=== PATIENT | male | born 1965 | race Caucasian/White ===

== ENCOUNTER 2017-01-16 17:36 | Emergency (ER) | payer SELFPAY ==
[~2017-01-16] VITALS: Ht 167.6 cm; Wt 75.0 kg
[~2017-01-16 17:36] MED LIST: CETI10TA6 PO; FLUT16SP15 BOTHNSTRLS; GLIP10TA10 PO; HYDR-3511 PO; METF850T2 PO; METO10TA3 PO; OMEP20CA10 PO
[2017-01-16] MEDS ORDERED: KETOROLAC 30MG/ML VIAL IV STA (22:34)
[2017-01-16] MEDS ORDERED: VISCOUS LIDOCAINE 2% 15 ML UDC PO STA (22:34)
[2017-01-16] MEDS ORDERED: MAGNESIUM/ALUMINUM HYDROXIDE/SIMETHICONE 30ML UDC PO STA (22:34)
[2017-01-16] MEDS ORDERED: ONDANSETRON HCL 4MG/2ML VIAL IV STA (22:34)
[2017-01-16] MEDS ORDERED: SODIUM CHLORIDE 0.9% 1,000 ML IV ONE (22:34)
[2017-01-16] MEDS ORDERED: DICYCLOMINE 10 MG/5 ML ORAL SYR PO STA (22:34)
[2017-01-16 23:10] LABS: HEMATOCRIT. 44.3 % (42.0-52.0); HEMOGLOBIN. 15.5 g/dL (14.0-18.0); MEAN CORPUSCULAR HEMOGLOBIN 30.8 pg (28.0-32.0); MEAN CORPUSCULAR VOLUME 87.9 fL (80.0-94.0); MEAN PLATELET VOLUME 8.1 fl (7.4-10.4); PLATELET 216 x1000/uL (130-400); RED BLOOD CELL COUNT 5.04 mill/uL (4.7-6.1); RED CELL DISTRIBUTION WIDTH 12.9 % (11.6-14.6)
[2017-01-16 23:16] LABS: CHLORIDE 99 mEq/L (98-107)
[2017-01-16 23:18] LABS: PROTHROMBIN TIME 10.7 sec
[2017-01-16 23:19] LABS: CARBON DIOXIDE 33 mEq/L (21-32)
[2017-01-17 00:45] VITALS: BP 138/84
[2017-01-17 02:35] LABS: PLATELET ESTIMATE NORMAL
== END 2017-01-17 00:47 | disposition home or self-care (01) ==
LOC: ER 17:36
DX: R10.33 Periumbilical pain (principal); E11.9 Type 2 diabetes mellitus without complications; Z79.899 Other long term (current) drug therapy
CPT/HCPCS: 36415; 80053; 83690; 85025; 85610; 96361; 96374; 96375; 99284; J1885; J2405; J7030; Z7610

== ENCOUNTER 2018-09-22 20:30 | Inpatient (IN) | payer MEDICAID ==
[~2018-09-22] VITALS: Ht 167.6 cm; Wt 68.5 kg
[~2018-09-22 20:30] MED LIST changes: +METF-415 PO; -METF850T2 PO
[2018-09-22] MEDS ORDERED: FAMOTIDINE 20MG/2ML VIAL IV STA (23:02)
[2018-09-22] MEDS ORDERED: MORPHINE SULFATE 4 MG/ML CPJ (NOT FOR IM USE) IV STA (23:02)
[2018-09-22] MEDS ORDERED: SODIUM CHLORIDE 0.9% 1,000 ML IV ONE (23:02)
[2018-09-22] MEDS ORDERED: ONDANSETRON HCL 4MG/2ML INJ IV STA (23:02)
[2018-09-22 23:56] LABS: BASOPHILS % 0.1 % (0.0-2.0); EOSINOPHILS % 0.1 % (0.0-5.0); HEMATOCRIT. 45.4 % (42.0-52.0); HEMOGLOBIN. 15.2 g/dL (14.0-18.0); MEAN CORPUSCULAR HEMOGLOBIN 30.4 pg (28.0-32.0); MEAN CORPUSCULAR VOLUME 90.8 fL (80.0-94.0); MEAN PLATELET VOLUME 8.5 fl (7.4-10.4); MONOCYTES % 2.1 % (2.0-8.0); NEUTROPHILS % 86.7 % (40.0-76.0); PLATELET 174 x1000/uL (130-400); RED CELL DISTRIBUTION WIDTH 13.5 % (11.6-14.6)
[2018-09-22 23:58] LABS: CHLORIDE 105 mEq/L (98-107)
[2018-09-23] MEDS ORDERED: MORPHINE SULFATE 4 MG/ML CPJ (NOT FOR IM USE) IV ONE (01:30)
[2018-09-23] MEDS ORDERED: MAGNESIUM/ALUMINUM HYDROXIDE/SIMETHICONE 30ML UDC PO ONE (01:30)
[2018-09-23] MEDS ORDERED: ONDANSETRON HCL 4MG/2ML INJ IV ONE (01:30)
[2018-09-23] MEDS ORDERED: IOHEXOL-300 100 ML BOTTLE ONE (02:24)
[2018-09-23 03:26] VITALS: BP 145/79
[2018-09-23 04:00] VITALS: BP 145/79
[2018-09-23] MEDS ORDERED: DEXTROSE 50% WATER 50ML SYRINGE IV PRN (07:00)
[2018-09-23] MEDS: BLOOD SUGAR DIAGNOSTIC STRIP TEST SCH ×4 (07:20→21:11)
[2018-09-23] MEDS: INSULIN LISPRO 100 UNITS/ML SUBCUT SCH ×4 (07:50→21:55)
[2018-09-23 08:00] VITALS: BP 150/89
[2018-09-23] MEDS: SODIUM CHLORIDE 0.9% 1,000 ML IV SCH ×2 (08:00→22:18)
[2018-09-23] MEDS: HYDROCODONE/ACETAMINOPHEN 5/325MG TABLET PO PRN ×3 (08:23→21:46)
[2018-09-23] MEDS: ONDANSETRON HCL 4MG/2ML INJ IV PRN ×2 (08:39→17:10)
[2018-09-23 09:06] LABS: HEMATOCRIT 46.3 % (42.0-52.0); HEMOGLOBIN 15.6 g/dL (14.0-18.0); MEAN CORPUSCULAR HEMOGLOBIN 30.8 pg (28.0-32.0); MEAN CORPUSCULAR VOLUME 91.5 fL (80.0-94.0); PLATELET 165 x1000/uL (130-400); RED BLOOD CELL COUNT 5.06 mill/uL (4.7-6.1); RED CELL DISTRIBUTION WIDTH 13.8 % (11.6-14.6)
[2018-09-23 09:16] LABS: CHLORIDE 102 mEq/L (98-107)
[2018-09-23 09:23] LABS: LDL CHOLESTEROL 99 mg/dL (5-100)
[2018-09-23 09:24] LABS: HDL CHOLESTEROL 50 mg/dL (40-59)
[2018-09-23 12:00] VITALS: BP 135/88
[2018-09-23] MEDS ORDERED: MORPHINE SULFATE 4 MG/ML CPJ (NOT FOR IM USE) IV PRN (12:15)
[2018-09-23 16:00] VITALS: BP 113/70
[2018-09-23 20:00] VITALS: BP 130/71
[2018-09-23] MEDS: ENOXAPARIN 40MG/0.4ML SYR SUBCUT SCH (21:46)
[2018-09-24] VITALS: BP 115/70
[2018-09-24] MEDS: HYDROCODONE/ACETAMINOPHEN 5/325MG TABLET PO PRN ×3 (03:55→16:39)
[2018-09-24] MEDS: ONDANSETRON HCL 4MG/2ML INJ IV PRN ×3 (03:55→16:38)
[2018-09-24 04:00] VITALS: BP 105/65
[2018-09-24] MEDS: BLOOD SUGAR DIAGNOSTIC STRIP TEST SCH ×4 (07:29→21:00)
[2018-09-24 07:37] LABS: BASOPHILS % 0.3 % (0.0-2.0); EOSINOPHILS % 0.2 % (0.0-5.0); LYMPHOCYTES % 24.7 % (20.0-50.0); MEAN CORPUSCULAR HEMOGLOBIN 30.9 pg (28.0-32.0); MEAN CORPUSCULAR VOLUME 90.6 fL (80.0-94.0); MONOCYTES % 8.7 % (2.0-8.0); NEUTROPHILS % 66.1 % (40.0-76.0); PLATELET 159 x1000/uL (130-400); RED BLOOD CELL COUNT 4.53 mill/uL (4.7-6.1); RED CELL DISTRIBUTION WIDTH 13.6 % (11.6-14.6)
[2018-09-24 07:39] LABS: CHLORIDE 105 mEq/L (98-107)
[2018-09-24 08:00] VITALS: BP 123/67
[2018-09-24 12:00] VITALS: BP 157/91
[2018-09-24] MEDS: METOCLOPRAMIDE HCL 10MG/2ML VIAL IV SCH ×2 (12:25→17:00)
[2018-09-24] MEDS: PANTOPRAZOLE SODIUM 40 MG/VIAL IV SCH (12:26)
[2018-09-24] MEDS: INSULIN LISPRO 100 UNITS/ML SUBCUT SCH ×2 (12:37→16:46)
[2018-09-24 16:00] VITALS: BP 156/85
[2018-09-24 20:00] VITALS: BP_SYST 143; BP_SYST 166; BP_DIAS 70; BP_DIAS 82
[2018-09-24] MEDS: ENOXAPARIN 40MG/0.4ML SYR SUBCUT SCH (20:24)
[2018-09-24] MEDS: ZOLPIDEM TARTRATE 5MG TABLET PO PRN (22:48)
[2018-09-25] VITALS: BP 100/55
[2018-09-25] MEDS: METOCLOPRAMIDE HCL 10MG/2ML VIAL IV SCH ×4 (00:09→17:57)
[2018-09-25 04:00] VITALS: BP 114/70
[2018-09-25] MEDS: BLOOD SUGAR DIAGNOSTIC STRIP TEST SCH ×4 (06:31→21:00)
[2018-09-25 06:36] LABS: BASOPHILS % 0.1 % (0.0-2.0); HEMATOCRIT. 41.2 % (42.0-52.0); HEMOGLOBIN. 14.1 g/dL (14.0-18.0); LYMPHOCYTES % 20.3 % (20.0-50.0); MEAN CORPUSCULAR HEMOGLOBIN 30.7 pg (28.0-32.0); MEAN CORPUSCULAR VOLUME 89.4 fL (80.0-94.0); MEAN PLATELET VOLUME 8.8 fl (7.4-10.4); MONOCYTES % 7.5 % (2.0-8.0); NEUTROPHILS % 72.1 % (40.0-76.0); PLATELET 160 x1000/uL (130-400); RED CELL DISTRIBUTION WIDTH 13.6 % (11.6-14.6)
[2018-09-25 06:54] LABS: CHLORIDE 100 mEq/L (98-107)
[2018-09-25] MEDS: INSULIN LISPRO 100 UNITS/ML SUBCUT SCH ×4 (07:50→21:00)
[2018-09-25 08:00] VITALS: BP 110/66
[2018-09-25] MEDS: HYDROCODONE/ACETAMINOPHEN 5/325MG TABLET PO PRN ×2 (08:47→15:18)
[2018-09-25] MEDS: PANTOPRAZOLE SODIUM 40 MG/VIAL IV SCH (08:47)
[2018-09-25 12:00] VITALS: BP 152/82
[2018-09-25] MEDS ORDERED: POTASSIUM CHLORIDE 20MEQ TABLET SR PO NR (15:30)
[2018-09-25] MEDS: ONDANSETRON HCL 4MG/2ML INJ IV PRN (15:45)
[2018-09-25 16:00] VITALS: BP 159/84
[2018-09-25] MEDS ORDERED: HYDROMORPHONE HCL/PF 2MG/ML CPJ IV PRN (16:00)
[2018-09-25 20:00] VITALS: BP 154/83
[2018-09-25] MEDS: ENOXAPARIN 40MG/0.4ML SYR SUBCUT SCH (22:13)
[2018-09-26] VITALS: BP 105/68
[2018-09-26] MEDS: METOCLOPRAMIDE HCL 10MG/2ML VIAL IV SCH ×2 (01:42→11:27)
[2018-09-26] MEDS: ZOLPIDEM TARTRATE 5MG TABLET PO PRN (01:43)
[2018-09-26 04:00] VITALS: BP 101/61
[2018-09-26] MEDS: INSULIN LISPRO 100 UNITS/ML SUBCUT SCH ×2 (07:01→12:50)
[2018-09-26] MEDS: BLOOD SUGAR DIAGNOSTIC STRIP TEST SCH ×2 (07:01→11:40)
[2018-09-26] MEDS: SODIUM CHLORIDE 0.9% 1,000 ML IV SCH (07:30)
[2018-09-26 07:50] LABS: CHLORIDE 102 mEq/L (98-107)
[2018-09-26 08:00] VITALS: BP 120/67
[2018-09-26] MEDS: PANTOPRAZOLE SODIUM 40 MG/VIAL IV SCH (08:22)
[2018-09-26] MEDS ORDERED: POTASSIUM CHLORIDE 20MEQ TABLET SR PO NR (10:45)
[2018-09-26 12:00] VITALS: BP 122/75
[2018-09-26 13:15] VITALS: BP 150/84
== END 2018-09-26 16:15 | disposition home or self-care (01) | DRG 48 ==
LOC: ER 20:30 → EDBEDREQ 09-23 01:55 → EDBEDREQTM 09-23 01:55 → ENRESERV 09-23 02:00 → 6EST 09-23 02:57
PROVIDERS: ADMIT Internal Medicine; ATTEND Internal Medicine
DX: E11.43 Type 2 diabetes mellitus with diabetic autonomic (poly)neuropathy (principal); K31.84 Gastroparesis; Z79.84 Long term (current) use of oral hypoglycemic drugs
CPT/HCPCS: 36415; 74177; 80048; 80061; 82962; 83036; 83735; 84484; 85027; 96361; 96374; 96375; 99285; C9113; J1650; J1815; J2270; J2405; J2765; J3490; J7030; Q9967

== ENCOUNTER 2018-11-11 13:29 | Emergency (ER) | payer MEDICAID ==
[~2018-11-11] VITALS: Ht 167.6 cm; Wt 70.0 kg
[2018-11-11] MEDS ORDERED: SODIUM CHLORIDE 0.9% 1,000 ML IV ONE (16:23)
[2018-11-11] MEDS ORDERED: KETOROLAC 30MG/ML VIAL IV STA (16:23)
[2018-11-11] MEDS ORDERED: MAGNESIUM/ALUMINUM HYDROXIDE/SIMETHICONE 30ML UDC PO STA (16:23)
[2018-11-11] MEDS ORDERED: ONDANSETRON HCL 4MG/2ML INJ IV STA (16:23)
[2018-11-11 16:58] LABS: BASOPHILS % 0.2 % (0.0-2.0); HEMATOCRIT. 45.3 % (42.0-52.0); HEMOGLOBIN. 15.7 g/dL (14.0-18.0); LYMPHOCYTES % 10.7 % (20.0-50.0); MEAN CORPUSCULAR HEMOGLOBIN 31.3 pg (28.0-32.0); MEAN CORPUSCULAR VOLUME 90.5 fL (80.0-94.0); MEAN PLATELET VOLUME 8.7 fl (7.4-10.4); MONOCYTES % 2.2 % (2.0-8.0); NEUTROPHILS % 86.9 % (40.0-76.0); PLATELET 190 x1000/uL (130-400); RED CELL DISTRIBUTION WIDTH 13.7 % (11.6-14.6)
[2018-11-11 17:01] LABS: CHLORIDE 105 mEq/L (98-107)
[2018-11-11 17:05] LABS: ETHANOL BLOOD < 10 mg/dL
[2018-11-11] MEDS ORDERED: MORPHINE SULFATE 4 MG/ML CPJ (NOT FOR IM USE) IV ONE (20:15)
[2018-11-11] MEDS ORDERED: METOCLOPRAMIDE HCL 10MG/2ML VIAL IV ONE (20:15)
[2018-11-11 20:51] LABS: CLARITY URINE CLEAR (CLEAR); COLOR URINE YELLOW (YELLOW); KETONES URINE 1+ (NEGATIVE); LEUKOCYTE ESTERASE URINE NEGATIVE (NEGATIVE); NITRITE URINE NEGATIVE (NEGATIVE); OCCULT BLOOD URINE NEGATIVE (NEGATIVE); PROTEIN URINE NEGATIVE (NEGATIVE); SPECIFIC GRAVITY URINE 1.012 (1.005-1.030); UROBILINOGEN URINE 0.2 E.U./dL (0.2-1.0)
[2018-11-11 21:46] VITALS: BP 150/79
== END 2018-11-11 21:58 | disposition home or self-care (01) ==
LOC: ER 13:29
DX: R10.33 Periumbilical pain (principal); E11.9 Type 2 diabetes mellitus without complications; Z79.84 Long term (current) use of oral hypoglycemic drugs; Z98.890 Other specified postprocedural states
CPT/HCPCS: 36415; 74176; 80053; 80320; 81003; 82962; 83690; 85025; 93005; 96361; 96374; 96375; 99284; J1885; J2270; J2405; J2765; J7030; G0480

== ENCOUNTER 2019-03-07 17:17 | Inpatient (IN) | payer MEDICAID, OTHER ==
[~2019-03-07] VITALS: Ht 167.6 cm; Wt 71.7 kg
[~2019-03-07 17:17] MED LIST changes: -HYDR-3511 PO; +HYDR-3512 PO; -OMEP20CA10 PO; +OMEP20CA5 PO
[2019-03-07] MEDS ORDERED: SODIUM CHLORIDE 0.9% 1,000 ML IV ONE (20:19)
[2019-03-07] MEDS ORDERED: ONDANSETRON HCL 4MG/2ML INJ IV STA (20:19)
[2019-03-07] MEDS ORDERED: MORPHINE SULFATE 4 MG/ML CPJ (NOT FOR IM USE) IV STA (20:19)
[2019-03-07 21:21] LABS: BASOPHILS % 0.2 % (0.0-2.0); HEMATOCRIT. 46.2 % (42.0-52.0); HEMOGLOBIN. 16.2 g/dL (14.0-18.0); LYMPHOCYTES % 11.1 % (20.0-50.0); MEAN CORPUSCULAR HEMOGLOBIN 31.4 pg (28.0-32.0); MEAN CORPUSCULAR VOLUME 89.4 fL (80.0-94.0); MEAN PLATELET VOLUME 8.8 fl (7.4-10.4); MONOCYTES % 7.2 % (2.0-8.0); NEUTROPHILS % 81.5 % (40.0-76.0); PLATELET 172 x1000/uL (130-400); RED BLOOD CELL COUNT 5.17 mill/uL (4.7-6.1); RED CELL DISTRIBUTION WIDTH 13.3 % (11.6-14.6)
[2019-03-07 21:27] LABS: CHLORIDE 98 mEq/L (98-107)
[2019-03-07 21:37] LABS: CLARITY URINE CLEAR (CLEAR); COLOR URINE YELLOW (YELLOW); KETONES URINE 2+ (NEGATIVE); LEUKOCYTE ESTERASE URINE NEGATIVE (NEGATIVE); NITRITE URINE NEGATIVE (NEGATIVE); OCCULT BLOOD URINE NEGATIVE (NEGATIVE); PH URINE 6.5 (4.5-8.0); PROTEIN URINE 1+ (NEGATIVE); SPECIFIC GRAVITY URINE 1.039 (1.005-1.030); UROBILINOGEN URINE 0.2 E.U./dL (0.2-1.0)
[2019-03-07] MEDS ORDERED: METRONIDAZOLE 500 MG PREMIX 100 ML IV ONE (22:00)
[2019-03-07] MEDS ORDERED: LEVOFLOXACIN 750MG PREMIX 150 ML IV ONE (22:00)
[2019-03-07] MEDS ORDERED: LEVOFLOXACIN 500MG PREMIX 100 ML IV SCH (23:45)
[2019-03-07] MEDS ORDERED: ACETAMINOPHEN 325MG TABLET PO PRN (23:45)
[2019-03-07] MEDS ORDERED: MORPHINE SULFATE 2 MG/ML CPJ (NOT FOR IM USE) IV PRN (23:45)
[2019-03-07] MEDS ORDERED: ONDANSETRON HCL 4MG/2ML INJ IV PRN (23:45)
[2019-03-07] MEDS ORDERED: CLONIDINE 0.1MG TABLET PO PRN (23:45)
[2019-03-07] MEDS ORDERED: MAGNESIUM/ALUMINUM HYDROXIDE/SIMETHICONE 30ML UDC PO PRN (23:45)
[2019-03-08] VITALS: BP 128/79
[2019-03-08 00:20] VITALS: BP 128/79
[2019-03-08] MEDS ORDERED: DEXT 5%/0.45% NACL 1000ML 1,000 ML IV SCH (02:00)
[2019-03-08 04:00] VITALS: BP 125/72
[2019-03-08] MEDS: METRONIDAZOLE 500 MG PREMIX 100 ML IV SCH ×2 (05:44→14:00)
[2019-03-08] MEDS ORDERED: METRONIDAZOLE 500 MG PREMIX 100 ML IV SCH (06:00)
[2019-03-08 08:16] LABS: BASOPHILS % 0.3 % (0.0-2.0); EOSINOPHILS % 0.2 % (0.0-5.0); HEMATOCRIT. 41.7 % (42.0-52.0); HEMOGLOBIN. 14.6 g/dL (14.0-18.0); LYMPHOCYTES % 22.2 % (20.0-50.0); MEAN CORPUSCULAR HEMOGLOBIN 31.2 pg (28.0-32.0); MEAN CORPUSCULAR VOLUME 89.2 fL (80.0-94.0); MEAN PLATELET VOLUME 8.9 fl (7.4-10.4); MONOCYTES % 9.9 % (2.0-8.0); NEUTROPHILS % 67.4 % (40.0-76.0); PLATELET 145 x1000/uL (130-400); RED BLOOD CELL COUNT 4.68 mill/uL (4.7-6.1); RED CELL DISTRIBUTION WIDTH 13.2 % (11.6-14.6)
[2019-03-08 08:28] VITALS: BP 125/77
[2019-03-08 08:31] LABS: CHLORIDE 104 mEq/L (98-107)
[2019-03-08] MEDS ORDERED: PANTOPRAZOLE SODIUM 40 MG/VIAL IV SCH (09:00)
[2019-03-08] MEDS ORDERED: DEXTROSE 50% WATER 50ML SYRINGE IV PRN (09:00)
[2019-03-08] MEDS ORDERED: BLOOD SUGAR DIAGNOSTIC STRIP TEST SCH (12:20)
[2019-03-08] MEDS ORDERED: INSULIN LISPRO 100 UNITS/ML SUBCUT SCH (12:50)
[2019-03-08 14:56] VITALS: BP 99/122
[2019-03-08] MEDS ORDERED: LEVOFLOXACIN 500MG PREMIX 100 ML IV SCH (22:00)
== END 2019-03-08 15:43 | disposition home or self-care (01) | DRG 249 ==
LOC: ER 17:17 → 6EST 23:15 → CANRESERV 23:21 → ENRESERV 23:21 → SUPCPDRO 23:30
PROVIDERS: ADMIT Hospitalist; ATTEND Hospitalist
DX: K52.9 Noninfective gastroenteritis and colitis, unspecified (principal); K31.84 Gastroparesis; E11.43 Type 2 diabetes mellitus with diabetic autonomic (poly)neuropathy; Z79.1 Long term (current) use of non-steroidal anti-inflammatories (NSAID); Z79.899 Other long term (current) drug therapy; Z79.84 Long term (current) use of oral hypoglycemic drugs
CPT/HCPCS: 36415; 71045; 74176; 81003; 82962; 84484; 93005; 93970; 99285; C9113; J1956; J2270; J2405; J3490; J7030

== ENCOUNTER 2019-04-29 19:41 | Inpatient (IN) | payer OTHER ==
[~2019-04-29] VITALS: Ht 167.6 cm; Wt 69.9 kg
[2019-04-29] MEDS ORDERED: ONDANSETRON HCL 4MG/2ML INJ IV STA (23:57)
[2019-04-29] MEDS ORDERED: SODIUM CHLORIDE 0.9% 1,000 ML IV ONE (23:57)
[2019-04-29] MEDS ORDERED: MORPHINE SULFATE 4 MG/ML CPJ (NOT FOR IM USE) IV STA (23:57)
[2019-04-29] MEDS ORDERED: FAMOTIDINE 20MG/2ML VIAL IV STA (23:57)
[2019-04-30 00:33] LABS: BASOPHILS % 0.3 % (0.0-2.0); HEMATOCRIT. 44.2 % (42.0-52.0); HEMOGLOBIN. 15.2 g/dL (14.0-18.0); LYMPHOCYTES % 11.4 % (20.0-50.0); MEAN CORPUSCULAR HEMOGLOBIN 31.5 pg (28.0-32.0); MEAN CORPUSCULAR VOLUME 91.8 fL (80.0-94.0); MEAN PLATELET VOLUME 9.1 fl (7.4-10.4); MONOCYTES % 2.3 % (2.0-8.0); PLATELET 171 x1000/uL (130-400); RED BLOOD CELL COUNT 4.82 mill/uL (4.7-6.1); RED CELL DISTRIBUTION WIDTH 13.6 % (11.6-14.6)
[2019-04-30 00:39] LABS: CHLORIDE 104 mEq/L (98-107)
[2019-04-30 00:44] LABS: ETHANOL BLOOD < 10 mg/dL
[2019-04-30 02:45] LABS: CLARITY URINE CLEAR (CLEAR); COLOR URINE YELLOW (YELLOW); KETONES URINE 3+ (NEGATIVE); LEUKOCYTE ESTERASE URINE NEGATIVE (NEGATIVE); NITRITE URINE NEGATIVE (NEGATIVE); OCCULT BLOOD URINE NEGATIVE (NEGATIVE); PROTEIN URINE NEGATIVE (NEGATIVE); SPECIFIC GRAVITY URINE 1.016 (1.005-1.030); UROBILINOGEN URINE 0.2 E.U./dL (0.2-1.0)
[2019-04-30] MEDS ORDERED: MORPHINE SULFATE 4 MG/ML CPJ (NOT FOR IM USE) IV ONE (02:45)
[2019-04-30] MEDS ORDERED: METOCLOPRAMIDE HCL 10MG/2ML VIAL IV ONE (02:45)
[2019-04-30 03:24] LABS: *AMPHETAMINES SCREEN URINE NEGATIVE (NEGATIVE); *BARBITURATES SCREEN URINE NEGATIVE (NEGATIVE); *BENZODIAZEPINES SCREEN URINE NEGATIVE (NEGATIVE); *COCAINE SCREEN URINE NEGATIVE (NEGATIVE)
[2019-04-30 03:25] LABS: CANNABINOID URINE SCREEN NEGATIVE (NEGATIVE); METHADONE URINE SCREEN NEGATIVE (NEGATIVE); OPIATES URINE SCREEN PRESUMTIVE POSITIVE (NEGATIVE); PHENCYCLIDINE URINE SCREEN NEGATIVE (NEGATIVE)
[2019-04-30 09:08] VITALS: BP 147/83
[2019-04-30] MEDS ORDERED: IPRATROPIUM/ALBUTEROL 0.5-3(2.5)MG/3ML NEB HHN PRN (09:45)
[2019-04-30] MEDS ORDERED: MAGNESIUM/ALUMINUM HYDROXIDE/SIMETHICONE 30ML UDC PO PRN (09:45)
[2019-04-30] MEDS ORDERED: DEXTROSE 50% WATER 50ML SYRINGE IV PRN ×2 (09:45)
[2019-04-30] MEDS ORDERED: ONDANSETRON HCL 4MG/2ML INJ IV PRN (09:45)
[2019-04-30] MEDS ORDERED: CLONIDINE 0.1MG TABLET PO PRN (09:45)
[2019-04-30] MEDS ORDERED: ACETAMINOPHEN 325MG TABLET PO PRN (09:45)
[2019-04-30] MEDS ORDERED: PANTOPRAZOLE 40MG DR TABLET PO NR (10:15)
[2019-04-30] MEDS: ENOXAPARIN 40MG/0.4ML SYR SUBCUT SCH (10:28)
[2019-04-30] MEDS: LINAGLIPTIN 5MG TABLET PO SCH (10:28)
[2019-04-30] MEDS: LORATADINE 10MG TABLET PO SCH (10:28)
[2019-04-30] MEDS: BLOOD SUGAR DIAGNOSTIC STRIP TEST SCH ×3 (11:46→20:47)
[2019-04-30] MEDS: INSULIN LISPRO 100 UNITS/ML SUBCUT SCH ×3 (11:53→20:47)
[2019-04-30] MEDS: METOCLOPRAMIDE HCL 10MG/2ML VIAL IV SCH ×3 (12:26→23:03)
[2019-04-30] MEDS: GLIPIZIDE 10MG TABLET PO SCH ×2 (12:26→17:00)
[2019-04-30] MEDS: FLUTICASONE PROPIONATE 50MCG/SPRAY BOTTLE BOTHNSTRLS SCH (12:27)
[2019-04-30 15:30] LABS: CLARITY URINE CLEAR (CLEAR); COLOR URINE YELLOW (YELLOW); KETONES URINE 3+ (NEGATIVE); LEUKOCYTE ESTERASE URINE NEGATIVE (NEGATIVE); NITRITE URINE NEGATIVE (NEGATIVE); OCCULT BLOOD URINE NEGATIVE (NEGATIVE); PH URINE 6.5 (4.5-8.0); PROTEIN URINE NEGATIVE (NEGATIVE); SPECIFIC GRAVITY URINE 1.023 (1.005-1.030); UROBILINOGEN URINE 0.2 E.U./dL (0.2-1.0)
[2019-04-30 15:49] LABS: *AMPHETAMINES SCREEN URINE NEGATIVE (NEGATIVE); *BARBITURATES SCREEN URINE NEGATIVE (NEGATIVE); *BENZODIAZEPINES SCREEN URINE NEGATIVE (NEGATIVE); *COCAINE SCREEN URINE NEGATIVE (NEGATIVE)
[2019-04-30 15:52] LABS: CANNABINOID URINE SCREEN NEGATIVE (NEGATIVE); METHADONE URINE SCREEN NEGATIVE (NEGATIVE); OPIATES URINE SCREEN PRESUMTIVE POSITIVE (NEGATIVE); PHENCYCLIDINE URINE SCREEN NEGATIVE (NEGATIVE)
[2019-04-30 20:00] VITALS: BP 103/66
[2019-05-01] VITALS: BP 95/56
[2019-05-01 04:00] VITALS: BP 99/63
[2019-05-01] MEDS: METOCLOPRAMIDE HCL 10MG/2ML VIAL IV SCH ×2 (05:07→11:53)
[2019-05-01] MEDS: BLOOD SUGAR DIAGNOSTIC STRIP TEST SCH ×2 (06:29→11:28)
[2019-05-01 06:38] LABS: BASOPHILS % 0.2 % (0.0-2.0); EOSINOPHILS % 0.2 % (0.0-5.0); HEMOGLOBIN. 13.9 g/dL (14.0-18.0); LYMPHOCYTES % 23.8 % (20.0-50.0); MEAN CORPUSCULAR HEMOGLOBIN 31.6 pg (28.0-32.0); MEAN CORPUSCULAR VOLUME 91.2 fL (80.0-94.0); MEAN PLATELET VOLUME 8.5 fl (7.4-10.4); MONOCYTES % 9.8 % (2.0-8.0); PLATELET 165 x1000/uL (130-400); RED BLOOD CELL COUNT 4.38 mill/uL (4.7-6.1); RED CELL DISTRIBUTION WIDTH 14.1 % (11.6-14.6)
[2019-05-01 07:11] LABS: CHLORIDE 105 mEq/L (98-107)
[2019-05-01] MEDS ORDERED: PANTOPRAZOLE 40MG DR TABLET PO SCH (07:20)
[2019-05-01] MEDS: INSULIN LISPRO 100 UNITS/ML SUBCUT SCH ×2 (07:50→11:57)
[2019-05-01 08:00] VITALS: BP 113/67
[2019-05-01] MEDS: LINAGLIPTIN 5MG TABLET PO SCH (08:00)
[2019-05-01] MEDS: FLUTICASONE PROPIONATE 50MCG/SPRAY BOTTLE BOTHNSTRLS SCH (08:00)
[2019-05-01] MEDS: LORATADINE 10MG TABLET PO SCH (08:00)
[2019-05-01] MEDS: GLIPIZIDE 10MG TABLET PO SCH (08:00)
[2019-05-01] MEDS: ENOXAPARIN 40MG/0.4ML SYR SUBCUT SCH (08:01)
[2019-05-01] MEDS ORDERED: METO5TAB86 PO (09:32)
[2019-05-01] MEDS ORDERED: LINA5TAB PO (09:32)
[2019-05-01] MEDS ORDERED: OMEP20TA2 PO (09:32)
[2019-05-01 10:22] LABS: HEMATOCRIT 42.6 % (42.0-52.0); HEMOGLOBIN 14.6 g/dL (14.0-18.0)
[2019-05-01] MEDS ORDERED: FLUTICASONE PROPIONATE 50MCG/SPRAY BOTTLE BOTHNSTRLS SCH (11:00)
[2019-05-01 12:00] VITALS: BP 101/66
[2019-05-01 14:21] VITALS: BP 113/67
[2019-05-01] MEDS ORDERED: GLIPIZIDE 10MG TABLET PO SCH (17:00)
[2019-05-02] MEDS ORDERED: OMEPRAZOLE 20MG CAPSULE EXTENDED RELEASE PO SCH (09:00)
== END 2019-05-01 14:47 | disposition home or self-care (01) | DRG 251 ==
LOC: ER 19:41 → 6EST 04-30 04:32 → EDBEDREQ 04-30 04:34 → EDBEDREQTM 04-30 04:34 → EDBEDREQDT 04-30 04:34 → ENRESERV 04-30 07:38 → CANRESERV 04-30 07:38 → EDBEDREQSVC 04-30 07:45 → ENRESERV 04-30 08:12
PROVIDERS: ADMIT Internal Medicine Geriatric Medicine; ATTEND Internal Medicine Geriatric Medicine
DX: R10.9 Unspecified abdominal pain (principal); K31.84 Gastroparesis; E11.319 Type 2 diabetes mellitus with unspecified diabetic retinopathy without macular edema; E11.43 Type 2 diabetes mellitus with diabetic autonomic (poly)neuropathy; D64.9 Anemia, unspecified; E78.00 Pure hypercholesterolemia, unspecified; I10 Essential (primary) hypertension; Z79.84 Long term (current) use of oral hypoglycemic drugs; T38.3X5A Adverse effect of insulin and oral hypoglycemic [antidiabetic] drugs, initial encounter; Y92.89 Other specified places as the place of occurrence of the external cause
CPT/HCPCS: 36415; 71045; 74176; 80061; 80305; 80320; 81003; 82962; 83036; 84484; 85014; 85018; 93005; 96361; 96374; 96375; 96376; 99285; J1650; J1815; J2270; J2405; J2765; J3490; J7030; G0480

== ENCOUNTER 2019-12-20 18:38 | Emergency (ER) | payer BC, MEDICAID, OTHER ==
[~2019-12-20] VITALS: Ht 167.6 cm; Wt 69.0 kg
[~2019-12-20 18:38] MED LIST changes: +LINA5TAB PO; -METF-415 PO; -METO10TA3 PO; +METO5TAB86 PO; +OMEP20CA14 PO; -OMEP20CA5 PO; +OMEP20TA2 PO
[2019-12-20] MEDS ORDERED: OMEPRAZOLE 20MG CAPSULE EXTENDED RELEASE PO ONE (22:45)
[2019-12-20] MEDS ORDERED: METOCLOPRAMIDE HCL 10MG/2ML VIAL IV ONE (22:45)
[2019-12-20 22:53] LABS: BASOPHILS % 0.1 % (0.0-2.0); HEMATOCRIT. 46.6 % (42.0-52.0); HEMOGLOBIN. 16.2 g/dL (14.0-18.0); LYMPHOCYTES % 9.9 % (20.0-50.0); MEAN CORPUSCULAR HEMOGLOBIN 31.2 pg (28.0-32.0); MEAN CORPUSCULAR VOLUME 89.8 fL (80.0-94.0); MONOCYTES % 1.9 % (2.0-8.0); NEUTROPHILS % 88.1 % (40.0-76.0); PLATELET 206 x1000/uL (130-400); RED BLOOD CELL COUNT 5.18 mill/uL (4.7-6.1); RED CELL DISTRIBUTION WIDTH 13.3 % (11.6-14.6)
[2019-12-20 22:59] LABS: CHLORIDE 103 mEq/L (98-107)
[2019-12-20 23:03] LABS: ETHANOL BLOOD < 10 mg/dL
[2019-12-20 23:08] LABS: BETA HYDROXYBUTYRATE 1.3 mMol/L (0.0-0.3)
[2019-12-20] MEDS ORDERED: DIPHENHYDRAMINE 50MG/ML VIAL IV SCH (23:30)
[2019-12-20] MEDS ORDERED: SODIUM CHLORIDE 0.9% 1,000 ML IV ONE (23:30)
[2019-12-21] MEDS ORDERED: HYDROCODONE/ACETAMINOPHEN 10/325MG TABLET PO ONE (01:30)
[2019-12-21] MEDS ORDERED: DIPHENHYDRAMINE 50MG/ML VIAL IV SCH (01:30)
[2019-12-21] MEDS ORDERED: PROCHLORPERAZINE 10MG/2ML VIAL IM SCH ×2 (02:00)
[2019-12-21] MEDS ORDERED: KETOROLAC 30MG/ML VIAL IV ONE (04:15)
[2019-12-21] MEDS ORDERED: SODIUM CHLORIDE 0.9% 1,000 ML IV ONE (05:00)
[2019-12-21] MEDS ORDERED: ONDANSETRON 4MG ODT PO SCH (05:30)
[2019-12-21 08:57] VITALS: BP 121/66
== END 2019-12-21 09:23 | disposition short-term general hospital (02) ==
LOC: ER 18:38
DX: K31.84 Gastroparesis (principal); E11.9 Type 2 diabetes mellitus without complications; I10 Essential (primary) hypertension; E78.00 Pure hypercholesterolemia, unspecified
CPT/HCPCS: 36415; 71045; 80053; 80320; 82010; 82962; 83605; 83880; 84484; 85025; 93005; 96361; 96372; 96374; 96375; 96376; 99285; J0780; J1200; J1885; J2765; J7030; Q0162; G0480

== ENCOUNTER 2020-01-09 16:56 | Emergency (ER) | payer BC, OTHER ==
[~2020-01-09] VITALS: Ht 167.6 cm; Wt 70.0 kg
[2020-01-09] MEDS ORDERED: SODIUM CHLORIDE 0.9% 1,000 ML IV ONE (22:52)
[2020-01-09] MEDS ORDERED: METOCLOPRAMIDE HCL 10MG/2ML VIAL IV STA (22:52)
[2020-01-09] MEDS ORDERED: PANTOPRAZOLE SODIUM 40 MG/VIAL IV STA (22:52)
[2020-01-09] MEDS ORDERED: KETOROLAC 30MG/ML VIAL IV STA (22:52)
[2020-01-10 00:18] LABS: HEMATOCRIT. 43.5 % (42.0-52.0); HEMOGLOBIN. 15.2 g/dL (14.0-18.0); MEAN CORPUSCULAR HEMOGLOBIN 31.3 pg (28.0-32.0); MEAN CORPUSCULAR VOLUME 89.8 fL (80.0-94.0); MEAN PLATELET VOLUME 8.9 fl (7.4-10.4); PLATELET 177 x1000/uL (130-400); RED BLOOD CELL COUNT 4.84 mill/uL (4.7-6.1); RED CELL DISTRIBUTION WIDTH 13.3 % (11.6-14.6)
[2020-01-10 00:26] LABS: CHLORIDE 103 mEq/L (98-107)
[2020-01-10 00:35] LABS: BETA HYDROXYBUTYRATE 0.5 mMol/L (0.0-0.3)
[2020-01-10 04:38] LABS: PLATELET ESTIMATE NORMAL
[2020-01-10 05:20] VITALS: BP 117/68
== END 2020-01-10 06:17 | disposition home or self-care (01) ==
LOC: ER 16:56
DX: R10.13 Epigastric pain (principal); R11.2 Nausea with vomiting, unspecified; E11.9 Type 2 diabetes mellitus without complications; K31.84 Gastroparesis; Z79.899 Other long term (current) drug therapy
CPT/HCPCS: 36415; 80053; 82010; 82962; 83605; 83690; 85025; 93005; 96361; 96374; 96375; 99285; J1885; J2765; J7030

== ENCOUNTER 2020-02-19 15:58 | Inpatient (IN) | payer BC, OTHER ==
[~2020-02-19] VITALS: Ht 167.6 cm; Wt 68.9 kg
[2020-02-19] MEDS ORDERED: ONDANSETRON HCL 4MG/2ML INJ IV STA (16:27)
[2020-02-19] MEDS ORDERED: MORPHINE SULFATE 4 MG/ML CPJ (NOT FOR IM USE) IV STA (16:27)
[2020-02-19] MEDS ORDERED: SODIUM CHLORIDE 0.9% 1,000 ML IV ONE (16:27)
[2020-02-19 16:49] LABS: BASOPHILS % 0.1 % (0.0-2.0); HEMATOCRIT. 46.1 % (42.0-52.0); HEMOGLOBIN. 16.1 g/dL (14.0-18.0); LYMPHOCYTES % 8.4 % (20.0-50.0); MEAN CORPUSCULAR HEMOGLOBIN 31.3 pg (28.0-32.0); MEAN PLATELET VOLUME 9.1 fl (7.4-10.4); MONOCYTES % 2.2 % (2.0-8.0); NEUTROPHILS % 89.3 % (40.0-76.0); PLATELET 177 x1000/uL (130-400); RED BLOOD CELL COUNT 5.12 mill/uL (4.7-6.1); RED CELL DISTRIBUTION WIDTH 13.4 % (11.6-14.6)
[2020-02-19 16:55] LABS: CHLORIDE 100 mEq/L (98-107)
[2020-02-19 17:00] LABS: PARTIAL THROMBOPLASTIN TIME 26.8 sec (23.4-31.0); PROTHROMBIN TIME 10.5 sec (9.6-11.0)
[2020-02-19 17:01] LABS: CLARITY URINE CLEAR (CLEAR); COLOR URINE YELLOW (YELLOW); KETONES URINE 4+ (NEGATIVE); LEUKOCYTE ESTERASE URINE NEGATIVE (NEGATIVE); NITRITE URINE NEGATIVE (NEGATIVE); OCCULT BLOOD URINE NEGATIVE (NEGATIVE); PROTEIN URINE TRACE (NEGATIVE)
[2020-02-19] MEDS ORDERED: LEVOFLOXACIN 750MG PREMIX 150 ML IV ONE (18:45)
[2020-02-19] MEDS ORDERED: METRONIDAZOLE 500 MG PREMIX 100 ML IV ONE (18:45)
[2020-02-19] MEDS ORDERED: ONDANSETRON HCL 4MG/2ML INJ IV PRN (21:14)
[2020-02-19] MEDS: MORPHINE SULFATE 4 MG/ML CPJ (NOT FOR IM USE) IV PRN (21:23)
[2020-02-20] MEDS ORDERED: ONDANSETRON HCL 4MG/2ML INJ IV PRN
[2020-02-20 00:34] LABS: *AMPHETAMINES SCREEN URINE NEGATIVE (NEGATIVE); *BARBITURATES SCREEN URINE NEGATIVE (NEGATIVE)
[2020-02-20 00:35] LABS: *BENZODIAZEPINES SCREEN URINE NEGATIVE (NEGATIVE); *COCAINE SCREEN URINE NEGATIVE (NEGATIVE); CANNABINOID URINE SCREEN NEGATIVE (NEGATIVE); METHADONE URINE SCREEN NEGATIVE (NEGATIVE); OPIATES URINE SCREEN PRESUMTIVE POSITIVE (NEGATIVE); PHENCYCLIDINE URINE SCREEN NEGATIVE (NEGATIVE)
[2020-02-20] MEDS: DEXT 5%/0.45% NACL KCL 20MEQ/L 1,000 ML IV SCH ×2 (00:54→15:14)
[2020-02-20] MEDS ORDERED: PANTOPRAZOLE SODIUM 40 MG/VIAL IV SCH (01:00)
[2020-02-20] MEDS: MORPHINE SULFATE 4 MG/ML CPJ (NOT FOR IM USE) IV PRN ×2 (04:03→11:34)
[2020-02-20] MEDS ORDERED: DEXTROSE 50% WATER 50ML SYRINGE IV PRN (06:15)
[2020-02-20] MEDS: METOCLOPRAMIDE HCL 10MG/2ML VIAL IV SCH ×3 (06:19→17:31)
[2020-02-20] MEDS: BLOOD SUGAR DIAGNOSTIC STRIP TEST SCH ×3 (06:47→17:36)
[2020-02-20] MEDS: INSULIN LISPRO (LOW DOSE) 100 UNITS/ML SUBCUT SCH ×3 (06:56→17:53)
[2020-02-20 08:08] LABS: BASOPHILS % 0.2 % (0.0-2.0); HEMOGLOBIN. 13.4 g/dL (14.0-18.0); LYMPHOCYTES % 13.8 % (20.0-50.0); MEAN CORPUSCULAR HEMOGLOBIN 31.2 pg (28.0-32.0); MEAN CORPUSCULAR VOLUME 90.5 fL (80.0-94.0); MEAN PLATELET VOLUME 8.9 fl (7.4-10.4); MONOCYTES % 8.3 % (2.0-8.0); NEUTROPHILS % 77.7 % (40.0-76.0); PLATELET 150 x1000/uL (130-400); RED BLOOD CELL COUNT 4.31 mill/uL (4.7-6.1); RED CELL DISTRIBUTION WIDTH 13.4 % (11.6-14.6)
[2020-02-20 08:26] LABS: CHLORIDE 103 mEq/L (98-107)
[2020-02-20 08:33] LABS: LDL CHOLESTEROL 99 mg/dL (5-100)
[2020-02-20 08:35] LABS: HDL CHOLESTEROL 38 mg/dL (40-59)
[2020-02-20 08:37] LABS: T4 FREE 1.45 ng/dL (0.76-1.46)
[2020-02-20] MEDS ORDERED: ENOXAPARIN 40MG/0.4ML SYR SUBCUT SCH (09:00)
[2020-02-20 10:00] VITALS: BP 124/69
[2020-02-20 12:00] VITALS: BP 114/65
[2020-02-20] MEDS ORDERED: METO10TA3 PO (12:49)
[2020-02-20] MEDS ORDERED: GLIM4TAB36 PO (12:49)
[2020-02-20] MEDS ORDERED: TOPUD PO (12:49)
[2020-02-20] MEDS ORDERED: DOCU-272 PO (12:49)
[2020-02-20] MEDS ORDERED: HYDRALAZINE 20MG/ML VIAL IV PRN (15:15)
[2020-02-20] MEDS ORDERED: ACETAMINOPHEN 325MG TABLET PO PRN (15:15)
[2020-02-20] MEDS ORDERED: ACETAMINOPHEN 650MG SUPP PR PRN (15:15)
[2020-02-20] MEDS ORDERED: LORAZEPAM 2MG/ML CPJ IV PRN (15:15)
[2020-02-20] MEDS ORDERED: IPRATROPIUM/ALBUTEROL 0.5-3(2.5)MG/3ML NEB HHN PRN (15:15)
[2020-02-20 16:00] VITALS: BP 122/75
[2020-02-20 18:39] VITALS: BP 122/75
[2020-02-20] MEDS ORDERED: LEVOFLOXACIN 500MG PREMIX 100 ML IV SCH (21:00)
== END 2020-02-20 20:05 | disposition short-term general hospital (02) | DRG 74 ==
LOC: ER 15:58 → MICUSO 19:10 → 7WST 02-20 08:21
PROVIDERS: ADMIT Internal Medicine; ATTEND Internal Medicine
DX: E11.43 Type 2 diabetes mellitus with diabetic autonomic (poly)neuropathy (principal); K57.30 Diverticulosis of large intestine without perforation or abscess without bleeding; K21.9 Gastro-esophageal reflux disease without esophagitis; E87.6 Hypokalemia; D72.810 Lymphocytopenia; K31.84 Gastroparesis; E11.65 Type 2 diabetes mellitus with hyperglycemia; K44.9 Diaphragmatic hernia without obstruction or gangrene; R79.89 Other specified abnormal findings of blood chemistry; N20.0 Calculus of kidney; E80.6 Other disorders of bilirubin metabolism; K52.9 Noninfective gastroenteritis and colitis, unspecified; Z79.891 Long term (current) use of opiate analgesic; Z79.899 Other long term (current) drug therapy; Z79.84 Long term (current) use of oral hypoglycemic drugs; Z03.818 Encounter for observation for suspected exposure to other biological agents ruled out
CPT/HCPCS: 36415; 71045; 74176; 80053; 80061; 80305; 81003; 82962; 83605; 84439; 84443; 84484; 85025; 87635; 93005; 96365; 99285; J1650; J1815; J1956; J2270; J2405; J2765; J3490; J7030; U0003-CS

== ENCOUNTER 2020-07-28 06:10 | Emergency (ER) | payer BC ==
[~2020-07-28] VITALS: Ht 165.1 cm; Wt 70.0 kg
[~2020-07-28 06:10] MED LIST changes: -CETI10TA6 PO; +DOCU-272 PO; +GLIM4TAB36 PO; -GLIP10TA10 PO; -LINA5TAB PO; +METO10TA3 PO; -METO5TAB86 PO; -OMEP20TA2 PO; +TOPUD PO
[2020-07-28] MEDS ORDERED: ONDANSETRON HCL 4MG/2ML INJ IV STA ×2 (06:41→08:01)
[2020-07-28] MEDS ORDERED: SODIUM CHLORIDE 0.9% 1,000 ML IV ONE ×2 (06:45→08:15)
[2020-07-28 07:04] LABS: HEMATOCRIT. 48.8 % (42.0-52.0); HEMOGLOBIN. 16.9 g/dL (14.0-18.0); MEAN CORPUSCULAR HEMOGLOBIN 30.8 pg (28.0-32.0); MEAN PLATELET VOLUME 8.6 fl (7.4-10.4); MONOCYTES % 7.1 % (2.0-8.0); NEUTROPHILS % 78.9 % (40.0-76.0); PLATELET 171 x1000/uL (130-400); RED BLOOD CELL COUNT 5.49 mill/uL (4.7-6.1); RED CELL DISTRIBUTION WIDTH 13.3 % (11.6-14.6)
[2020-07-28 07:11] LABS: CHLORIDE 99 mEq/L (98-107)
[2020-07-28] MEDS ORDERED: MORPHINE SULFATE 4 MG/ML CPJ (NOT FOR IM USE) IV STA (08:01)
[2020-07-28 08:27] LABS: CLARITY URINE CLEAR (CLEAR); COLOR URINE YELLOW (YELLOW); KETONES URINE 3+ (NEGATIVE); LEUKOCYTE ESTERASE URINE NEGATIVE (NEGATIVE); NITRITE URINE NEGATIVE (NEGATIVE); OCCULT BLOOD URINE TRACE (NEGATIVE); PROTEIN URINE 3+ (NEGATIVE); SPECIFIC GRAVITY URINE 1.046 (1.005-1.030)
[2020-07-28] MEDS ORDERED: OMEP40CA12 MT (10:45)
[2020-07-28] MEDS ORDERED: ONDA4TAB5 MT (10:46)
[2020-07-28] MEDS ORDERED: INSULIN REGULAR (HUMULIN R) 300UNITS/3ML VIAL SUBCUT ONE (11:00)
[2020-07-28 13:15] VITALS: BP 130/74
== END 2020-07-28 13:18 | disposition home or self-care (01) ==
LOC: ER 06:30
DX: U07.1 COVID-19 (principal); E11.65 Type 2 diabetes mellitus with hyperglycemia; R10.13 Epigastric pain; R11.2 Nausea with vomiting, unspecified
CPT/HCPCS: 36415; 71045; 80053; 81003; 83690; 85025; 93005; 96361; 96372; 96374; 96375; 96376; 99285; C9803; J1815; J2270; J2405; J7030; U0003